=== PATIENT | female | born 1975 | race Caucasian/White ===

== ENCOUNTER 2019-05-25 18:02 | Emergency (ER) | payer MEDICAID ==
[2019-05-25 19:29] VITALS: BP 125/83; PULSE 86
--- NOTE | 2019-05-25 20:16 | EDM.PDOC ---
ED HPI GENERAL MEDICAL PROBLEM - General Chief Complaint: General Stated Complaint: DIZZY,NAUSEATED Time Seen by Provider: 05/25/19 20:00 Source of Information: Reports: Patient, Family History Limitations: Reports: Uncooperative - History of Present Illness INITIAL COMMENTS - FREE TEXT/NARRATIVE: Elsy is a 43 yo female whom present to ER with her mother for evaluation. Patient is a chronic career alcoholic and has been for a number of years. 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 If she doesn't drink alcohol she goes into withdrawals, shaky and anxious. Patient has attempted to stop drinking alcohol is only been successful for 1 week at a time. Patient has returned to drinking with each attempt due to the severity of withdrawal symptoms. patient has a functioning alcoholic and has been for a number of years. Patient states the last 3 months she has had bouts of lightheadedness, dizziness and difficulty with ambulation. Patient states the symptoms are usually intermittent and brief until today. Patient was watching her grandchildren today and noted that she was lightheaded dizzy and could not ambulate when she changes positions. Patient has 2-6 dark loose stools per day. She denies any current nausea or vomiting. Patient is aware that her alcohol use is a problem and has no desire to quit. Patient believes she is dehydrated and needs IV fluids. Patient denies any history of seizures with withdrawals. Patient and mother state the family has had numerous traumatic events resulting in deaths over the last couple of years and more recently this week. Patient has slight URI symptoms. She denies headache, head injury or recent fall. Patient requesting a lyme disease test due to history of tick borne illness without current document symptoms or able to verify the location of a tick bite. She wants hemoglobin A1c to check her blood sugar. Patient intermittently checks her blood sugar at home which is 200 to 300 with no correlation with meals. - Related Data Allergies Allergy/AdvReac Type Severity Reaction Status Date / Time codeine Allergy Itching Verified 05/25/19 19:50 doxycycline Allergy Nausea and Verified 05/25/19 19:50 Vomiting Home Meds: Home Meds LORazepam [Ativan] 1 mg PO TID PRN #10 tablet 05/25/19 [Rx] Meclizine [Antivert] 25 mg PO TID 10 Days #30 tab.chew 05/25/19 [Rx] Past Medical History HEENT History: Reports: Impaired Vision Respiratory History: Reports: Asthma [employer] History: Reports: Musculoskeletal History: Reports: Arthritis, Back Pain, Chronic, Fracture, Other (See Below) Other Musculoskeletal History: spinal stenosis. right wrist fx. right clavicle fx Neurological History: Reports: Concussion Psychiatric History: Reports: Addiction, Anxiety, Bipolar, Depression, PTSD, Other (See Below) Other Psychiatric History: ETOH abuse - Past Surgical History GI Surgical History: Reports: Cholecystectomy, Hernia Repair/Other Female Surgical History: Reports: Section, Tubal Ligation, Other ( See Below) Other Female Surgeries/Procedures: tubal reversal Musculoskeletal Surgical History: Reports: Carpal Tunnel, Other (See Below) Other Musculoskeletal Surgeries/Procedures:: right wrist fx repair. bilateral carpal tunnel Social & Family History - Tobacco Use Smoking Status *Q: Current Every Day Smoker Years of Tobacco use: 12 Packs/Tins Daily: 0.5 - Caffeine Use Caffeine Use: Reports: Energy Drinks - Alcohol Use Date of Last Drink: 05/25/19 - Recreational Drug Use Recreational Drug Use: Yes Drug Use in Last 12 Months: Yes Recreational Drug Type: Reports: Marijuana/Hashish Recreational Drug Use Frequency: Daily ED ROS GENERAL - Review of Systems Review Of Systems: ROS reveals no pertinent complaints other than HPI. ( difficult to onbtain mother interrupts and patient preseverates on her acute symptoms) ED EXAM, GENERAL - Physical Exam Exam: See Below Exam Limited By: Other (alcohol intoxication) Eye Exam: Bilateral Eye: EOMI, PERRL Ears: Normal External Exam, Normal Canal, Hearing Grossly Normal, Normal TMs Nose: Normal Inspection, Normal Mucosa, No Blood Throat/Mouth: Normal Inspection (dry ), Normal Lips, Normal Teeth, Normal Gums, Normal Oropharynx, Normal Voice, No Airway Compromise Head: Normocephalic Neck: Normal Inspection Respiratory/Chest: No Respiratory Distress, Normal Breath Sounds Cardiovascular: Normal Peripheral Pulses, Regular Rate, Rhythm GI/Abdominal: Normal Bowel Sounds, Soft, Tender (mild generalized discomfort ) Back Exam: Normal Inspection, Full Range of Motion Extremities: Normal Inspection, Normal Range of Motion, Non-Tender, Normal Capillary Refill Neurological: Alert, CN II-XII Intact, Abnormal Gait, Other (intoxicated) Psychiatric: Anxious, Tearful Skin Exam: Warm, Dry, Intact, Normal Color, No Rash Course - Vital Signs Last Recorded V/S: Last Vital Signs Temp 36.1 C 05/25/19 19:51 Pulse 86 05/25/19 19:51 Resp 16 05/25/19 19:51 BP 125/83 05/25/19 19:51 Pulse Ox 98 05/25/19 19:51 - Orders/Labs/Meds Orders: Active Orders 24 hr Category Date Time Status Peripheral IV Care [RC] . DIRECTED Care 05/25/19 20:24 Active Sodium Chloride 0.9% [Normal Saline] 1,000 ml Med 05/25/19 20:30 Active IV ASDIRECTED Sodium Chloride 0.9% [Saline Flush] Med 05/25/19 20:24 Active 10 ml FLUSH ASDIRECTED PRN Peripheral IV Insertion Adult [OM.PC] Urgent Oth 05/25/19 20:23 Ordered Medication Orders Sodium Chloride (Normal Saline) 1,000 mls @ 500 mls/hr IV ASDIRECTED TIFFANIE Last Admin: 05/25/19 21:12 Dose: 500 mls/hr Sodium Chloride (Saline Flush) 10 ml FLUSH ASDIRECTED PRN PRN Reason: Keep Vein Open Last Admin: 05/25/19 21:13 Dose: 10 ml Labs: Laboratory Tests 05/25/19 05/25/19 05/25/19 Range/Units 19:31 21:01 21:01 WBC 4.2 L (4.5-11.0) K/uL RBC 4.15 (3.30-5.50) M/uL Hgb 14.1 (12.0-15.0) g/dL Hct 42.1 (36.0-48.0) % MCV 101 H (80-98) fL MCH 34 H (27-31) pg MCHC 34 (32-36) % Plt Count 135 L (150-400) K/uL Neut % (Auto) 33 L (36-66) % Lymph % (Auto) 42 (24-44) % [place] % (Auto) 19 H (2-6) % Eos % (Auto) 4 (2-4) % Baso % (Auto) 2 H (0-1) % Sodium 140 (140-148) mmol/L Potassium 4.0 (3.6-5.2) mmol/L Chloride 103 (100-108) mmol/L Carbon Dioxide 24 (21-32) mmol/L Anion Gap 12.9 (5.0-14.0) mmol/L BUN 15 (7-18) mg/dL Creatinine 0.5 L (0.6-1.0) mg/dL Est Cr Clr Drug Dosing 123.99 mL/min Estimated GFR (MDRD) > 60 (>60) Glucose 108 H (74-106) mg/dL Calcium 9.0 (8.5-10.1) mg/dL Magnesium 2.0 (1.8-2.4) mg/dL Urine Color Yellow Urine Appearance Slightly cloudy Urine pH 7.0 (4.5-8.0) Ur Specific [place] 1.015 (1.008-1.030) Urine Protein Negative (NEGATIVE) mg/dL Urine Glucose (UA) Normal (NEGATIVE) mg/dL Urine Ketones Negative (NEGATIVE) mg/dL Urine Occult Blood Negative (NEGATIVE) Urine Nitrite Negative (NEGATIVE) Urine Bilirubin Negative (NEGATIVE) Urine Urobilinogen Normal (NORMAL) mg/dL Ur Leukocyte Esterase Trace (NEGATIVE) Urine RBC Not seen (0-5) Urine WBC 0-5 (0-5) Ur Epithelial Cells Few Amorphous Sediment Moderate Urine Bacteria Few Urine Mucus Moderate Ethyl Alcohol mg/dL 05/25/19 Range/Units 21:38 WBC (4.5-11.0) K/uL RBC (3.30-5.50) M/uL Hgb (12.0-15.0) g/dL Hct (36.0-48.0) % MCV (80-98) fL MCH (27-31) pg MCHC (32-36) % Plt Count (150-400) K/uL Neut % (Auto) (36-66) % Lymph % (Auto) (24-44) % [place] % (Auto) (2-6) % Eos % (Auto) (2-4) % Baso % (Auto) (0-1) % Sodium (140-148) mmol/L Potassium (3.6-5.2) mmol/L Chloride (100-108) mmol/L Carbon Dioxide (21-32) mmol/L Anion Gap (5.0-14.0) mmol/L BUN (7-18) mg/dL Creatinine (0.6-1.0) mg/dL Est Cr Clr Drug Dosing mL/min Estimated GFR (MDRD) (>60) Glucose (74-106) mg/dL Calcium (8.5-10.1) mg/dL Magnesium (1.8-2.4) mg/dL Urine Color Urine Appearance Urine pH (4.5-8.0) Ur Specific [place] (1.008-1.030) Urine Protein (NEGATIVE) mg/dL Urine Glucose (UA) (NEGATIVE) mg/dL Urine Ketones (NEGATIVE) mg/dL Urine Occult Blood (NEGATIVE) Urine Nitrite (NEGATIVE) Urine Bilirubin (NEGATIVE) Urine Urobilinogen (NORMAL) mg/dL Ur Leukocyte Esterase (NEGATIVE) Urine RBC (0-5) Urine WBC (0-5) Ur Epithelial Cells Amorphous Sediment Urine Bacteria Urine Mucus Ethyl Alcohol 378 mg/dL Meds: Medications Generic Name Dose Route Start Last Admin Trade Name Freq PRN Reason Stop Dose Admin Sodium Chloride 1,000 mls @ 500 mls/hr 05/25/19 20:30 05/25/19 21:12 Normal Saline IV 500 mls/hr ASDIRECTED TIFFANIE Administration Sodium Chloride 10 ml 05/25/19 20:24 05/25/19 21:13 Saline Flush FLUSH 10 ml ASDIRECTED PRN Administration Keep Vein Open Discontinued Medications Generic Name Dose Route Start Last Admin Trade Name Freq PRN Reason Stop Dose Admin Lorazepam 1 mg 05/25/19 20:24 05/25/19 21:09 Ativan IVPUSH 05/25/19 20:25 1 mg ONETIME ONE Administration Lorazepam 1 mg 05/25/19 21:48 05/25/19 21:58 Ativan PO 05/25/19 21:49 1 mg ONETIME ONE Administration Meclizine HCl 25 mg 05/25/19 20:25 05/25/19 21:12 Antivert PO 05/25/19 20:26 25 mg ONETIME ONE Administration Meclizine HCl 25 mg 05/25/19 21:48 05/25/19 21:58 Antivert PO 05/25/19 21:49 25 mg ONETIME ONE Administration - Re-Assessments/Exams Free Text/Narrative Re-Assessment/Exam: I spoke to patient and mother regarding Hgb A1C and Tick Borne illness. I recommended patient get an appointment with primary care provider for follow- up. I declined to perform tests during visit due to unable to follow-up on results and treatment plan. 07/12/19 21:[address] scan, blood work and self care recommendations. Patient has continued symptoms after initial treatment. Repeat Oral Ativan and Meclizine given. Patient ate the Pizza which mother obtained and was resting while the remaining liter of fluids was infused. Patient rested between cares and between my examinations. 05/25/19 22:56 Departure - Departure Time of Disposition: 21:50 Disposition: Home, Self-Care 01 Clinical Impression: Vertigo, Dehydration, Anemia, macrocytic, nutritional, Alcohol abuse - Discharge Information Prescriptions: LORazepam [Ativan] 1 mg PO TID PRN #10 tablet PRN Reason: Agitation Meclizine [Antivert] 25 mg PO TID 10 Days #30 tab.chew Instructions: Alcohol Use Disorder, Vertigo, Vitamin B12 Deficiency, Anemia, Alcohol Abuse and Nutrition, Dehydration, Adult Referrals: PCP,None [Primary Care Provider] - 1 Week (Call PCP of choice to discuss symptoms if you desire further work-up. Go To your Local Detox facility to enable a safe withdrawal from alcohol and discuss care home treatment options. ) Forms: ED Department Discharge - Problem List & Annotations (1) Alcohol abuse SNOMED Code(s): 99622130 Code(s): F10.10 - ALCOHOL ABUSE, UNCOMPLICATED Status: Acute Current Visit: Yes (2) Anemia, macrocytic, nutritional SNOMED Code(s): 62827749 Code(s): D52.0 - DIETARY FOLATE DEFICIENCY ANEMIA Status: Acute Current Visit: Yes (3) Dehydration SNOMED Code(s): 24455635 Code(s): E86.0 - DEHYDRATION Status: Acute Current Visit: Yes (4) Vertigo SNOMED Code(s): 880499508 Code(s): R42 - DIZZINESS AND GIDDINESS Status: Acute Current Visit: Yes - My Orders Last 24 Hours: My Active Orders 05/25/19 20:23 Peripheral IV Insertion Adult [OM.PC] Urgent 05/25/19 20:24 Peripheral IV Care [RC] . DIRECTED Sodium Chloride 0.9% [Saline Flush] 10 ml FLUSH ASDIRECTED PRN 05/25/19 20:30 Sodium Chloride 0.9% [Normal Saline] 1,000 ml IV ASDIRECTED - Assessment/Plan Last 24 Hours: My Active Orders 05/25/19 20:23 Peripheral IV Insertion Adult [OM.PC] Urgent 05/25/19 20:24 Peripheral IV Care [RC] . DIRECTED Sodium Chloride 0.9% [Saline Flush] 10 ml FLUSH ASDIRECTED PRN 05/25/19 20:30 Sodium Chloride 0.9% [Normal Saline] 1,000 ml IV ASDIRECTED Plan: 1. Increased fluid intake. Ativan 1mg TID as needed for anxiety and alcohol withdrawal symptoms. 2. Meclizine 25-50mg every 8 hours for vertigo and dizziness until gone. 3. Start a multi vitamin daily. 4. Your CT Head scan was normal, no acute concerns of stroke, head bleed or brain cancer causing your symptoms. 5. Your blood sugar test is within normal range for random testing. It is normal for your blood sugar to be elevated after eating. 6. Your blood work show anemia likely due to poor nutrition and Vitamin B12 deficiency. Your blood work show normal electrolytes. 7. Your Urine is negative for infection.
[2019-05-25] MEDS ORDERED: Sodium Chloride 0.9% 10 ML Syringe FLUSH PRN (20:24)
[2019-05-25] MEDS ORDERED: LORazepam 2 MG/ML SDV IVPUSH ONE (20:24)
[2019-05-25] MEDS ORDERED: Meclizine 25 MG Tab PO ONE ×2 (20:25→21:48)
[2019-05-25] MEDS ORDERED: Sodium Chloride 0.9% 1,000 ML IV SCH (20:30)
--- NOTE | 2019-05-25 20:55 | CRLCT ---
INDICATION: Vertigo and dizziness TECHNIQUE: CT head without contrast. COMPARISON: None. FINDINGS: CSF spaces: Within normal limits for age. Brain parenchyma: The nesbitt-white differentiation is normal. No sign of mass, hemorrhage, or midline shift. Skull base and calvarium: Minimal mucosal thickening paranasal sinuses. The visualized orbits are grossly unremarkable. No skull fractures. IMPRESSION: Unremarkable noncontrast head CT. Please note that all CT scans at this facility use dose modulation, iterative reconstruction, and/or weight-based dosing when appropriate to reduce radiation dose to as low as reasonably achievable. Dictated by Jose Ruth MD @ May 25 2019 8:52PM Signed by Dr. Jose Ruth @ May 25 2019 8:54PM
[2019-05-25] MEDS ORDERED: LORazepam 1 MG Tab PO ONE (21:48)
== END 2019-05-25 23:30 | disposition home or self-care (01) ==
LOC: JP.ED 18:02
DX: E86.0 Dehydration (principal); R42 Dizziness and giddiness; D52.0 Dietary folate deficiency anemia; F10.10 Alcohol abuse, uncomplicated; Y90.8 Blood alcohol level of 240 mg/100 ml or more; F41.9 Anxiety disorder, unspecified; F31.9 Bipolar disorder, unspecified; F17.210 Nicotine dependence, cigarettes, uncomplicated; Z88.5 Allergy status to narcotic agent; Z88.1 Allergy status to other antibiotic agents
CPT/HCPCS: 36415; 70450; 80048; 81001; 83735; 85025; 96361; 96374; 99284; A9270; G0480; J2060; J7030

== ENCOUNTER 2023-10-25 10:34 | Emergency (ER) | payer MEDICAID ==
[2023-10-25 11:23] LABS: BASE EXCESS VENOUS 0.9 mm/L; BASOPHILS ABSOLUTE AUTO 0.06 K/uL (0.00-0.10); BASOPHILS PERCENT AUTO 0.9 % (0.1-1.3); BICARBONATE,VENOUS 24.3 mmol/L; CARBOXYHEMOGLOBIN 1.9 % (0.0-1.6); EOSINOPHILS ABSOLUTE AUTO 0.26 K/uL (0.00-0.40); HEMATOCRIT 36.5 % (34.3-46.0); HEMOGLOBIN 12.5 g/dL (11.2-15.5); IMMATURE GRAN PERCENT AUTO 0.2 % (0.0-0.7); LYMPHOCYTES ABSOLUTE AUTO 2.03 K/uL (0.8-3.3); LYMPHOCYTES PERCENT AUTO 31.5 % (11.4-47.7); MEAN CORPUSCULAR HGB CONC 34.2 g/dL (31.6-35.5); MEAN CORPUSCULAR VOLUME 87.5 fL (81.4-99.0); MONOCYTES ABSOLUTE AUTO 0.68 K/uL (0.20-0.90); MONOCYTES PERCENT AUTO 10.6 % (3.3-12.6); NEUTROPHILS PERCENT AUTO 52.8 % (40.0-78.1); O2 SATURATION VENOUS 75.9; OXYHEMOGLOBIN 73.7 %; PCO2 VENOUS 36.4 mm/Hg; PLATELET COUNT,PLT 235 K/uL (130-375); PO2 VENOUS 40.8 mm/Hg; RED BLOOD CELL COUNT 4.17 M/uL (3.77-5.24); WHITE BLOOD CELL COUNT,WBC 6.4 K/uL (3.2-11.0)
[2023-10-25 11:25] LABS: IMMATURE GRAN ABSOLUTE AUTO 0.01 K/uL (0.00-0.23)
[2023-10-25 11:41] LABS: PROTHROMBIN TIME 10.2 sec (9.2-10.6)
[2023-10-25 11:50] LABS: A/G RATIO 1.1 (1.2-2.2); ALANINE AMINOTRANSFERASE,ALT 20 U/L (12-78); ALBUMIN 3.5 g/dL (3.4-5.0); ALKALINE PHOSPHATASE 69 U/L (46-116); ASPARTATE AMNIOTRANSFERASE,AST 20 U/L (15-37); BILIRUBIN TOTAL 0.4 mg/dL (0.2-1.0); BLOOD UREA NITROGEN,BUN 19 mg/dL (7-18); CALCIUM 8.3 mg/dL (8.5-10.1); CARBON DIOXIDE,CO2 25 mmol/L (21-32); CHLORIDE,CL 104 mmol/L (100-108); CREATININE 0.7 mg/dL (0.6-1.0); EST CRCL DRUG DOSING (CG) 91.01 mL/min; ESTIMATED GFR 106 mL/min (>60); GLUCOSE RANDOM 114 mg/dL (74-106); POTASSIUM,K 4.3 mmol/L (3.6-5.2); PRO B-TYPE NATRIUR PEPT,BNPPRO 39 pg/mL (5-125); PROTEIN TOTAL,TP 6.8 g/dL (6.4-8.2); SODIUM,NA 138 mmol/L (140-148)
[2023-10-25 11:51] LABS: ANION GAP 13.3 mmol/L (5.0-14.0)
[2023-10-25 12:06] LABS: CORONAVIRUS COVID-19 NAA NEGATIVE (NEGATIVE); INFLUENZA A NAA NEGATIVE (NEGATIVE); INFLUENZA B NAA NEGATIVE (NEGATIVE); RESPIRATORY SYNCYTIAL VIR NAA NEGATIVE (NEGATIVE)
[2023-10-25 13:16] VITALS: BP 122/78; PULSE 63
== END 2023-10-25 13:18 | disposition home or self-care (01) ==
LOC: JP.ED 10:34
DX: R09.1 Pleurisy (principal); J45.909 Unspecified asthma, uncomplicated; Z79.899 Other long term (current) drug therapy; Z20.822 Contact with and (suspected) exposure to COVID-19; Z88.5 Allergy status to narcotic agent; Z88.8 Allergy status to other drugs, medicaments and biological substances
CPT/HCPCS: 0241U; 36415; 71045; 80053; 82803; 83880; 84145; 84484; 85025; 85379; 85610; 93005; 99285